=== PATIENT | male | born 1935 | race Caucasian/White ===

== ENCOUNTER 2021-11-21 13:14 | Observation (INO) ==
[2021-11-21] MEDS ORDERED: DILTIAZEM 50 MG/10 ML VIAL IV STA (13:42)
[2021-11-21] MEDS ORDERED: SODIUM CHLORIDE 0.9% 1,000 ML IV STA (13:43)
[2021-11-21 13:58] LABS: Basophils # 0.1 10*3/uL (0.0-0.2); Basophils % 1.1 % (0.0-0.8); Eosinophils # 0.1 10*3/uL (0.0-0.87); Eosinophils % 1.1 % (0.00-10.9); Hematocrit 40.3 VOL% (42.0-52.0); Hemoglobin 13.7 GM/DL (14.0-18.0); Immature Granulocytes % 0.2 %; Immature Granulocytes Absolute 0.01 #; Lymphocytes # 0.9 10*3/uL (1.4-4.0); Lymphocytes % 20.8 % (21.2-54.2); Mean Corpuscular Volume 94.2 FL (87-102); Mean Platelet Volume 10.3 FL (9.6-12.0); Monocytes # 0.4 10*3/uL (0.11-0.8); Monocytes % 7.9 % (1.7-12.7); Neutrophils % 68.9 % (38.7-73.9); Platelet Count 154 T/CUMM (130-400); Red Blood Count 4.28 MC/CUMM (3.8-5.5); White Blood Count 4.4 T/CUMM (4-12)
[2021-11-21 14:16] LABS: PT Patient Result 11.4 SECS (10.5-12.0); Partial Thromboplastin Time 21.3 SECS (23.8-32.1)
[2021-11-21 14:19] LABS: Albumin 4.3 G/DL (3.4-5.0); Bilirubin,Total 0.6 MG/DL (0.20-1.00); Calcium 9.4 MG/DL (8.5-10.1); Potassium 4.1 MMOL/L (3.5-5.1); Total Protein 7.4 G/DL (6.4-8.2)
[2021-11-21 14:25] LABS: Thyroid Stimulating Hormone 0.914 uIU/ml (0.358-3.74)
[2021-11-21] MEDS ORDERED: ACETAMINOPHEN 325 MG TABLET PO PRN (15:59)
[2021-11-21] MEDS ORDERED: ONDANSETRON 4 MG/2 ML VIAL IV PRN (15:59)
[2021-11-21] MEDS ORDERED: DILTIAZEM 30 MG TABLET PO SCH (17:00)
[2021-11-21] MEDS ORDERED: ASPIRIN 325 MG TABLET PO SCH (17:00)
[2021-11-21] MEDS: METOPROLOL TARTRATE 25 MG TABLET PO SCH ×2 (17:00→21:12)
[2021-11-21] MEDS ORDERED: ENOXAPARIN 40 MG/0.4 ML SYRINGE SUBCUT SCH (17:00)
[2021-11-22 05:22] LABS: Basophils # 0.1 10*3/uL (0.0-0.2); Basophils % 1.4 % (0.0-0.8); Eosinophils # 0.1 10*3/uL (0.0-0.87); Eosinophils % 2.5 % (0.00-10.9); Hematocrit 37.2 VOL% (42.0-52.0); Hemoglobin 12.5 GM/DL (14.0-18.0); Immature Granulocytes % 0.2 %; Immature Granulocytes Absolute 0.01 #; Lymphocytes # 1.5 10*3/uL (1.4-4.0); Lymphocytes % 35.3 % (21.2-54.2); Mean Corpuscular HGB Conc 33.6 GM/DL (32-36); Mean Corpuscular Volume 95.4 FL (87-102); Mean Platelet Volume 9.9 FL (9.6-12.0); Monocytes # 0.6 10*3/uL (0.11-0.8); Monocytes % 13.2 % (1.7-12.7); Neutrophils % 47.4 % (38.7-73.9); Platelet Count 141 T/CUMM (130-400); Red Cell Distribution Width 13.1 % (9.3-17.3); White Blood Count 4.3 T/CUMM (4-12)
[2021-11-22 05:34] LABS: Calcium 8.5 MG/DL (8.5-10.1); Osmolality,Calculated 278.5 MOS/KG (273-304); Potassium 3.9 MMOL/L (3.5-5.1)
[2021-11-22] MEDS ORDERED: PANTOPRAZOLE 40 MG TABLET PO SCH (09:00)
[2021-11-22] MEDS ORDERED: ASPIRIN CHEW 81 MG TABLET PO SCH (09:00)
[2021-11-22] MEDS ORDERED: ALFUZOSIN 10 MG TABLET PO SCH ×2 (09:00→21:00)
[2021-11-22] MEDS: METOPROLOL TARTRATE 25 MG TABLET PO SCH (09:29)
[2021-11-22] MEDS ORDERED: APIXABAN 5 MG TABLET PO SCH (10:32)
[2021-11-22 16:37] VITALS: BP 108/75
[2021-11-22] MEDS ORDERED: amLODIPine 5 MG TABLET PO SCH (21:00)
[2021-11-22] MEDS ORDERED: FLECAINIDE 100 MG TABLET PO SCH (21:00)
== END 2021-11-22 17:03 | disposition home or self-care (01) ==
LOC: N.ED 13:14 → N.EDINP 13:14 → SUATTDRO 15:59 → N.TELEN 17:30
PROVIDERS: ADMIT Internal Medicine; ATTEND Internal Medicine